=== PATIENT | female | born 1980 | race Caucasian/White ===

== ENCOUNTER → 2017-03-08 | Outpatient (CLI) | payer OTHER ==
[~2017-03-08] MED LIST: ACET50TA PO; IBUP80TA PO; NORC1TAB4 PO
--- NOTE | 2017-03-08 14:26 | REP ---
BASELINE BILATERAL SCREENING DIGITAL MAMMOGRAM: There are no palpable abnormalities or other breast complaints. The patient states she had a clinical breast exam in February 2017. There are no comparisons. The study is a baseline examination. There is moderately dense heterogeneous breast parenchyma that could obscure a lesion. There is no dominant mass, micro calcific cluster or architectural distortion that would indicate malignancy. IMPRESSION: There is no evidence of malignancy. BIRADS category 1 negative mammogram. The patient should have a repeat mammogram in 1 year. This mammogram was interpreted with the aid of an FDA-approved computer-aided detection system. A. Negative x-ray reports should not delay biopsy if a dominant or clinically suspicious mass is present. B. Nor all breast cancers are identified by x-ray. C. Adenosis and dense breasts may obscure an underlying neoplasm. Patient letter M1 dense breasts. Signed by Derek Hearn MD 03/09/2017 01:58 P
== END ==
LOC: M RAD 12:52
PROVIDERS: ATTEND Advanced Practice Midwife
DX: Z12.31 Encounter for screening mammogram for malignant neoplasm of breast (principal)

== ENCOUNTER → 2017-05-24 | Outpatient (REF) | payer OTHER ==
[2017-05-24 13:52] LABS: CHOLESTEROL LEVEL 189 MG/DL (<200); CHOLESTEROL RISK RATIO 3.315 (<5); GLUCOSE,RANDOM 86 MG/DL (LESS THAN 200); HDL CHOLESTEROL 57 MG/DL (>40); LDL CHOLESTEROL 99.2 MG/DL (<100); NON-HDL-C 132 MG/DL; TRIGLYCERIDES LEVEL 164 MG/DL (<150)
== END ==
LOC: M LABDRAW1 10:24
DX: Z13.1 Encounter for screening for diabetes mellitus (principal); Z13.220 Encounter for screening for lipoid disorders
CPT/HCPCS: 36415

== ENCOUNTER → 2017-06-26 | Outpatient (REF) | payer OTHER | LOC: M LAB REF 09:44 | DX: A08.4 Viral intestinal infection, unspecified (principal) | CPT/HCPCS: 87086 ==

== ENCOUNTER → 2017-06-26 | Outpatient (CLI) | payer OTHER ==
[2017-06-26 18:35] LABS: ALBUMIN 3.6 GM/DL (3.2-5.2); ALBUMIN/GLOBULIN RATIO 0.92 (1.00-1.93); ALKALINE PHOSPHATASE 92 U/L (45-117); ALT/SGPT 72 U/L (12-78); ANION GAP 9 MEQ/L (8-16); AST/SGOT 61 U/L (7-37); BILIRUBIN,TOTAL 0.6 MG/DL (0.2-1.0); BLOOD UREA NITROGEN 6 MG/DL (7-18); CALCIUM LEVEL 8.9 MG/DL (8.5-10.1); CARBON DIOXIDE LEVEL 28 MEQ/L (21-32); CHLORIDE LEVEL 103 MEQ/L (98-107); CREATININE FOR GFR 0.69 MG/DL (0.55-1.30); GLOMERULAR FILTRATION RATE > 60.0 (>60); GLUCOSE, FASTING 88 MG/DL (70-100); POTASSIUM SERUM 3.6 MEQ/L (3.5-5.1); SODIUM LEVEL 140 MEQ/L (136-145); TOTAL PROTEIN 7.5 GM/DL (6.4-8.2)
[2017-06-26 18:55] LABS: BASO % 0.2 % (0.0-1.0); EOS % 0.2 % (0.0-3.0); IMMATURE GRANULOCYTE % 0.2 % (0-3.0); LYMPH # 1.7 10^3/uL (1.5-4.5); LYMPH % 27.4 % (24.0-44.0); MEAN CORPUSCULAR HEMOGLOBIN 30.2 pg (27.0-33.0); MEAN CORPUSCULAR HGB CONC 34.1 g/dl (32.0-36.5); MEAN CORPUSCULAR VOLUME 88.4 fl (80.0-96.0); MONO # 0.4 10^3/uL (0.0-0.8); MONO % 7.1 % (0.0-5.0); NEUTROPHILS % 64.9 % (36.0-66.0); PLATELET COUNT, AUTOMATED 290 10^3/uL (150-450); RED BLOOD COUNT 4.64 10^6/uL (4.00-5.40); RED CELL DISTRIBUTION WIDTH 12.1 % (11.5-14.5); WHITE BLOOD COUNT 6.2 10^3/uL (4.0-10.0)
== END ==
LOC: M LAB 16:57
DX: R19.7 Diarrhea, unspecified (principal); J06.9 Acute upper respiratory infection, unspecified
CPT/HCPCS: 80053

== ENCOUNTER → 2017-06-26 | Outpatient (REF) | payer OTHER | LOC: M SFHCPLAZ 17:42 | DX: J06.9 Acute upper respiratory infection, unspecified (principal) | CPT/HCPCS: 87633 ==

== ENCOUNTER → 2017-06-28 | Outpatient (REF) | payer OTHER | LOC: M SFHCPLAZ 10:17 | DX: R19.7 Diarrhea, unspecified (principal) | CPT/HCPCS: 87507 ==

== ENCOUNTER → 2017-07-05 | Outpatient (REF) | payer OTHER ==
[2017-07-05 16:45] LABS: FREE T4 1.14 NG/DL (0.76-1.46)
== END ==
LOC: M SFHCPLAZ 10:54
DX: R00.0 Tachycardia, unspecified (principal)
CPT/HCPCS: 84443

== ENCOUNTER → 2018-02-14 | Outpatient (REF) | payer OTHER ==
[2018-02-14 13:01] LABS: ALBUMIN 3.5 GM/DL (3.2-5.2); ALBUMIN/GLOBULIN RATIO 1.09 (1.00-1.93); ALKALINE PHOSPHATASE 66 U/L (45-117); ALT/SGPT 21 U/L (12-78); ANION GAP 6 MEQ/L (8-16); AST/SGOT 19 U/L (7-37); BILIRUBIN,TOTAL 0.4 MG/DL (0.2-1.0); BLOOD UREA NITROGEN 10 MG/DL (7-18); CALCIUM LEVEL 8.9 MG/DL (8.5-10.1); CARBON DIOXIDE LEVEL 29 MEQ/L (21-32); CHLORIDE LEVEL 106 MEQ/L (98-107); CREATININE FOR GFR 0.76 MG/DL (0.55-1.30); GLOMERULAR FILTRATION RATE > 60.0 (>60); GLUCOSE, FASTING 87 MG/DL (70-100); POTASSIUM SERUM 4.3 MEQ/L (3.5-5.1); SODIUM LEVEL 141 MEQ/L (136-145); TOTAL PROTEIN 6.7 GM/DL (6.4-8.2)
== END ==
LOC: M SFHCPLAZ 09:20
DX: R74.0 Nonspecific elevation of levels of transaminase and lactic acid dehydrogenase [LDH] (principal)

== ENCOUNTER → 2018-03-14 | Outpatient (CLI) | payer OTHER | LOC: M RAD 09:26 | DX: Z12.31 Encounter for screening mammogram for malignant neoplasm of breast (principal) | CPT/HCPCS: 77067 ==

== ENCOUNTER → 2018-09-25 | Outpatient (CLI) | payer OTHER ==
[~2018-09-25] MED LIST changes: -ACET50TA PO; +MAPA500T17 PO; -NORC1TAB4 PO; +NORC1TAB7 PO
--- NOTE | 2018-09-26 11:50 | REP ---
Clinical: Right ankle pain. Technique: AP, lateral, bilateral oblique views of the right ankle. Comparison: None. Findings: Soft tissue swelling is appreciated. Well corticated bony fragment inferior to the fibular tip may represent old fracture and much less likely acute fracture. Ankle mortise appears intact and normal. No obvious acute fracture or dislocation identified. No subcutaneous emphysema or radiodense foreign body. Impression: Essentially age-appropriate examination. Suspect old fracture fragment at the fibular tip less likely representing acute injury. Electronically Signed by Ike Her MD 09/26/2018 11:30 A
== END ==
LOC: M ADAMS 16:22
PROVIDERS: ATTEND Physician Assistant Medical
DX: M25.571 Pain in right ankle and joints of right foot (principal)

== ENCOUNTER → 2019-03-11 | Outpatient (REF) | payer OTHER ==
[2019-03-14 14:13] LABS: HPV HYBRID CAPTURE II Negative (Negative)
== END ==
LOC: M LAB REF 19:57
PROVIDERS: ATTEND Advanced Practice Midwife
DX: Z12.4 Encounter for screening for malignant neoplasm of cervix (principal)

== ENCOUNTER → 2019-04-02 | Outpatient (CLI) | payer OTHER ==
--- NOTE | 2019-04-02 17:24 | REPMRS ---
Patient History The patient states she had a clinical breast exam in 2018.Family history of unknown cancer in father. Taking hormonal contraceptives for 4 years. denied,patient shielded. 3D TOMOSYNTHESIS WAS PERFORMED. [facility] for [facility] cancer [facility] 10.4%. Digital Mammo Screening Bilat: April 02, 2019 - Exam #: [id number] Bilateral CC and MLO view(s) were taken. Technologist: Marilou Grace, Technologist Prior study comparison: March 14, 2018, bilateral digital mammo screening bilat performed at [facility]. March 08, 2017, bilateral digital mammo screening bilat performed at [facility]. FINDINGS: There are scattered fibroglandular densities. There has been no change in the appearance of the mammogram from the prior studies. There is a mild amount of residual fibroglandular tissue which is fairly symmetric. There is no interval development of dominant mass, architectural distortion, or clustered microcalcification suggestive of malignancy. Assessment: BI-RADS/ACR category 1 mammogram. Negative Mammogram. Recommendation Routine screening mammogram in 1 year (for women over age 40). This mammogram was interpreted with the aid of an FDA-approved computer-aided dectection system. Electronically Signed By: Derek Pratt MD 04/02/19 [id number]
== END ==
LOC: M RAD 16:49
PROVIDERS: ATTEND Advanced Practice Midwife
DX: Z12.31 Encounter for screening mammogram for malignant neoplasm of breast (principal)

== ENCOUNTER → 2019-06-14 | Outpatient (REF) | payer OTHER | LOC: M SFHCPLAZ 10:33 | PROVIDERS: ATTEND Family Medicine | DX: Z53.9 Procedure and treatment not carried out, unspecified reason (principal) ==

== ENCOUNTER → 2019-09-18 | Outpatient (REF) | payer OTHER ==
[2019-09-18 13:57] LABS: HEMATOCRIT 40.9 % (36.0-47.0); HEMOGLOBIN 13.6 g/dl (12.0-15.5); MEAN CORPUSCULAR HEMOGLOBIN 30.9 pg (27.0-33.0); MEAN CORPUSCULAR HGB CONC 33.3 g/dl (32.0-36.5); PLATELET COUNT, AUTOMATED 303 10^3/uL (150-450); WHITE BLOOD COUNT 8.7 10^3/uL (4.0-10.0)
[2019-09-18 14:01] LABS: ALBUMIN 3.6 GM/DL (3.2-5.2); ALT/SGPT 34 U/L (12-78); BILIRUBIN,TOTAL 0.5 MG/DL (0.2-1.0); BLOOD UREA NITROGEN 11 MG/DL (7-18); CALCIUM LEVEL 9.1 MG/DL (8.5-10.1); CARBON DIOXIDE LEVEL 28 MEQ/L (21-32); CHLORIDE LEVEL 104 MEQ/L (98-107); CHOLESTEROL LEVEL 204 MG/DL (<200); CHOLESTEROL RISK RATIO 3.238 (<5); CREATININE FOR GFR 0.78 MG/DL (0.55-1.30); GLOMERULAR FILTRATION RATE > 60.0 (>58); GLUCOSE, FASTING 110 MG/DL (70-100); HDL CHOLESTEROL 63 MG/DL (>40); LDL CHOLESTEROL 114 MG/DL (<100); NON-HDL-C 141 MG/DL; POTASSIUM SERUM 4.3 MEQ/L (3.5-5.1); SODIUM LEVEL 139 MEQ/L (136-145); TOTAL PROTEIN 6.6 GM/DL (6.4-8.2); TRIGLYCERIDES LEVEL 133 MG/DL (<150)
[2019-09-18 14:28] LABS: HEMOGLOBIN A1c 6.1 %
== END ==
LOC: M SFHCPLAZ 09:51 → M SFHCADAM 09:52
PROVIDERS: ATTEND Family Medicine
DX: I10 Essential (primary) hypertension (principal); Z13.1 Encounter for screening for diabetes mellitus; Z13.220 Encounter for screening for lipoid disorders

== ENCOUNTER → 2020-03-13 | Outpatient (REF) | payer OTHER | LOC: M SFHCADAM 08:46 | PROVIDERS: ATTEND Student in an Organized Health Care Education/Training Program | DX: R73.03 Prediabetes (principal) ==

== ENCOUNTER → 2020-05-15 | Outpatient (REF) | payer OTHER | LOC: M SFHCPLAZ 13:05 | PROVIDERS: ATTEND Student in an Organized Health Care Education/Training Program | DX: D22.4 Melanocytic nevi of scalp and neck (principal) ==

== ENCOUNTER → 2020-06-22 | Outpatient (REF) | payer OTHER | LOC: M LAB REF 09:31 | PROVIDERS: ATTEND Dermatology | DX: C44.41 Basal cell carcinoma of skin of scalp and neck (principal) ==

== ENCOUNTER → 2020-09-07 | Outpatient (CLI) | payer OTHER | LOC: M WHC 09:58 | PROVIDERS: ATTEND Advanced Practice Midwife | DX: Z53.9 Procedure and treatment not carried out, unspecified reason (principal); Z12.31 Encounter for screening mammogram for malignant neoplasm of breast ==

== ENCOUNTER → 2020-09-07 | Outpatient (REF) | payer OTHER | LOC: M SFHCWAGY 13:12 | PROVIDERS: ATTEND Advanced Practice Midwife | DX: Z12.4 Encounter for screening for malignant neoplasm of cervix (principal) ==

== ENCOUNTER → 2020-09-07 | Outpatient (CLI) | payer OTHER ==
--- NOTE | 2020-09-07 12:47 | REPMRS ---
Patient History The patient states she had a clinical breast exam in 09-07-2020. Patient has history Basal cell cancer at age 40. Family history of Follicular Degenerate Carcinoma at age 55 in father. Taking hormonal contraceptives for 8 years. Patient states no breast complaints today. Patient has signed MRS History Sheet. Digital Woman Screen Mammo: September 07, 2020 - Exam #: [id number] Bilateral CC and MLO view(s) were taken. Technologist: Kaila Bush, Erector Operator Prior study comparison: April 02, 2019, bilateral digital mammo screening bilat, performed at [facility]. March 14, 2018, bilateral digital mammo screening bilat, performed at [facility]. FINDINGS: There are scattered fibroglandular densities. Screening. Digital screening (2D) mammography was performed bilaterally in the CC and MLO projections. Additionally, breast tomosynthesis (3D mammography) was performed bilaterally in the CC and MLO projections. Todays exam was compared to the prior exams(s). By history, the patient has no complaints of a palpable breast abnormality or other significant breast complaints. The breasts are unchanged in size and shape. There are no lonny-soft tissue densities or spiculated masses. There is no internal architectural distortion. There are no suspicious lonny-calcific clusters. Skin thickening or nipple retraction is not present. IMPRESSION: BI-RADS Category 2- Benign Findings(s). There is no evidence of malignant alteration of the breasts. Followup examination recommended in one year. This mammogram was read with the assistance of iNEWiT,an FDA approved computer aided detection system for mammography. The Volpara volumetric breast density category is B, there are scattered areas of fibroglandular density. Negative x-ray reports should not delay surgical consultation if a dominant or clinically suspicious mass is present. The lifetime Tyrer-Cuzick score is 8.3 % Not all breast cancers can be identified by mammography. Therefore, we recommend that you continue to perform regular breast self-examination and physical examination and then promptly contact your physician of any concerns or changes. Adenosis and dense breasts may obscure an underlying neoplasm. Assessment: BI-RADS/ACR category 2 mammogram. Benign Findings. Recommendation Routine screening mammogram of both breasts in 1 year. Electronically Signed By: Radames Rao DO 09/07/20 [id number]
== END ==
LOC: M WHC 09:16
PROVIDERS: ATTEND Advanced Practice Midwife
DX: Z12.31 Encounter for screening mammogram for malignant neoplasm of breast (principal); Z79.3 Long term (current) use of hormonal contraceptives

== ENCOUNTER → 2021-02-05 | Outpatient (REF) | payer OTHER | LOC: M LAB REF 16:19 | PROVIDERS: ATTEND Physician Assistant | DX: C44.41 Basal cell carcinoma of skin of scalp and neck (principal) ==

== ENCOUNTER → 2021-09-27 | Outpatient (REF) | payer OTHER | LOC: M SFHCDERM 14:16 | PROVIDERS: ATTEND Physician Assistant | DX: C44.310 Basal cell carcinoma of skin of unspecified parts of face (principal) ==

== ENCOUNTER → 2022-01-18 | Outpatient (REF) | payer OTHER | LOC: M SFHCWAGY 17:45 | PROVIDERS: ATTEND Advanced Practice Midwife | DX: Z12.4 Encounter for screening for malignant neoplasm of cervix (principal) ==

== ENCOUNTER → 2022-01-18 | Outpatient (CLI) | payer OTHER | LOC: M WHC 14:03 | PROVIDERS: ATTEND Advanced Practice Midwife | DX: Z12.31 Encounter for screening mammogram for malignant neoplasm of breast (principal) ==

== ENCOUNTER → 2022-01-18 | Outpatient (CLI) | payer OTHER | LOC: M WHC 13:18 | PROVIDERS: ATTEND Advanced Practice Midwife | DX: Z12.31 Encounter for screening mammogram for malignant neoplasm of breast (principal) ==

== ENCOUNTER → 2022-03-04 | Outpatient (REF) | payer OTHER | LOC: M SFHCDERM 17:12 | PROVIDERS: ATTEND Dermatology | DX: Z48.02 Encounter for removal of sutures (principal) ==

== ENCOUNTER 2022-07-04 15:00 | Emergency (ER) | payer OTHER ==
[~2022-07-04] VITALS: Ht 154.9 cm; Wt 104.7 kg
[2022-07-04] MEDS ORDERED: NORE1TAB73 (15:13)
[2022-07-04] MEDS ORDERED: OMEP40CA5 (15:13)
[2022-07-04 16:03] LABS: BASO # 0.1 10^3/uL (0.0-0.2); BASO % 0.4 % (0.0-1.0); EOS % 0.3 % (0.0-3.0); HEMATOCRIT 41.3 % (36.0-47.0); HEMOGLOBIN 13.9 g/dl (12.0-15.5); LYMPH # 2.4 10^3/uL (1.5-5.0); LYMPH % 20.1 % (24.0-44.0); MEAN CORPUSCULAR HEMOGLOBIN 30.3 pg (27.0-33.0); MEAN CORPUSCULAR HGB CONC 33.7 g/dl (32.0-36.5); MONO # 0.5 10^3/uL (0.0-0.8); MONO % 4.2 % (2.0-8.0); NEUTROPHILS % 74.6 % (36.0-66.0); PLATELET COUNT, AUTOMATED 306 10^3/uL (150-450); RED BLOOD COUNT 4.59 10^6/uL (4.00-5.40)
[2022-07-04 16:15] LABS: INR 0.96; PARTIAL THROMBOPLASTIN TIME 23.4 SECONDS (24.8-34.2)
[2022-07-04 16:27] LABS: LIPASE 41 U/L (12-53)
[2022-07-04 16:29] LABS: CPK CREATINE PHOSPHOKINASE 124 U/L (34-145)
[2022-07-04 17:11] LABS: ALBUMIN 3.7 G/DL (3.2-5.2); ALKALINE PHOSPHATASE 64 U/L (46-116); ALT/SGPT 17 U/L (7.0-40); AST/SGOT 14 U/L (<34); BILIRUBIN,DIRECT 0.1 MG/DL (<0.4); BILIRUBIN,TOTAL 0.5 MG/DL (0.3-1.2); BLOOD UREA NITROGEN 12 MG/DL (9-23); CARBON DIOXIDE LEVEL 25 MMOL/L (20-31); CHLORIDE LEVEL 103 MMOL/L (98-107); CK-MB VALUE MASS < 1.0 NG/ML (<3.6); CREATININE FOR GFR 0.77 MG/DL (0.55-1.30); GLOMERULAR FILTRATION RATE > 60.0 (>58); GLUCOSE, FASTING 145 MG/DL (60-100); POTASSIUM SERUM 3.9 MMOL/L (3.5-5.1); SODIUM LEVEL 136 MMOL/L (136-145); THYROID STIMULATING HORMONE 3.332 uIU/ML (0.55-4.78); TOTAL PROTEIN 7.2 G/DL (5.7-8.2)
[2022-07-04 17:12] LABS: HCG, SERUM QUALITATIVE NEGATIVE (NEGATIVE)
[2022-07-04] MEDS ORDERED: DEBL1TAB PO (18:35)
[2022-07-04] MEDS ORDERED: CHLO125TA PO (18:35)
[2022-07-04] MEDS ORDERED: CHLORTHALIDONE 12.5MG PER 1/2 TABLET PO ONE (18:35)
[2022-07-04] MEDS ORDERED: ACETAMINOPHEN 325 MG TAB PO ONE (18:40)
[2022-07-04 18:44] VITALS: BP 171/94
== END 2022-07-04 18:54 | disposition home or self-care (01) ==
LOC: M ED 15:00
DX: I10 Essential (primary) hypertension (principal); Z79.83 Long term (current) use of bisphosphonates; Z79.3 Long term (current) use of hormonal contraceptives

== ENCOUNTER → 2022-07-15 | Outpatient (REF) | payer OTHER ==
[~2022-07-15] MED LIST changes: +CHLO125TA PO; +DEBL1TAB PO; +NORE1TAB73; +OMEP40CA5
== END ==
LOC: M SFHCPLAZ 10:02
PROVIDERS: ATTEND Family Medicine
DX: Z53.9 Procedure and treatment not carried out, unspecified reason (principal)

== ENCOUNTER → 2022-07-15 | Outpatient (CLI) | payer OTHER ==
[2022-07-15 13:35] LABS: BASO # 0.1 10^3/uL (0.0-0.2); BASO % 0.6 % (0.0-1.0); EOS # 0.1 10^3/uL (0.0-0.5); EOS % 1.4 % (0.0-3.0); HEMATOCRIT 41.8 % (36.0-47.0); HEMOGLOBIN 14.5 g/dl (12.0-15.5); LYMPH # 2.4 10^3/uL (1.5-5.0); LYMPH % 28.1 % (24.0-44.0); MEAN CORPUSCULAR HEMOGLOBIN 31.1 pg (27.0-33.0); MEAN CORPUSCULAR HGB CONC 34.7 g/dl (32.0-36.5); MEAN CORPUSCULAR VOLUME 89.7 fl (80.0-96.0); MONO # 0.5 10^3/uL (0.0-0.8); MONO % 5.5 % (2.0-8.0); NEUTROPHILS # 5.4 10^3/uL (1.5-8.5); NEUTROPHILS % 64.2 % (36.0-66.0); PLATELET COUNT, AUTOMATED 341 10^3/uL (150-450); RED BLOOD COUNT 4.66 10^6/uL (4.00-5.40); WHITE BLOOD COUNT 8.4 10^3/uL (4.0-10.0)
[2022-07-15 13:57] LABS: HEMOGLOBIN A1c 6.2 % (4.0-6.0)
[2022-07-15 14:10] LABS: BLOOD UREA NITROGEN 10 MG/DL (9-23); CALCIUM LEVEL 9.4 MG/DL (8.5-10.1); CARBON DIOXIDE LEVEL 32 MMOL/L (20-31); CHLORIDE LEVEL 96 MMOL/L (98-107); CHOLESTEROL LEVEL 200 MG/DL (<200); CHOLESTEROL RISK RATIO 3.35 (<5); CREATININE FOR GFR 0.67 MG/DL (0.55-1.30); GLOMERULAR FILTRATION RATE > 60.0 (>58); GLUCOSE, FASTING 116 MG/DL (60-100); HDL CHOLESTEROL 59.6 MG/DL (>40); NON-HDL-C 140.4 MG/DL; POTASSIUM SERUM 3.2 MMOL/L (3.5-5.1); SODIUM LEVEL 137 MMOL/L (136-145); THYROID STIMULATING HORMONE 1.303 uIU/ML (0.55-4.78); TRIGLYCERIDES LEVEL 127 MG/DL (<150)
[2022-07-20 00:11] LABS: CREATININE,RANDOM URINE 68.6 mg/dL (Not Estab.); URINE METANEPHR/CREAT RATIO 0.3 (0.0-1.0)
== END ==
LOC: M PLALAB 10:28
PROVIDERS: ATTEND Student in an Organized Health Care Education/Training Program
DX: I10 Essential (primary) hypertension (principal)

== ENCOUNTER → 2022-08-23 | Outpatient (CLI) | payer OTHER | LOC: M RAD 07:27 | PROVIDERS: ATTEND Student in an Organized Health Care Education/Training Program | DX: I10 Essential (primary) hypertension (principal) ==

== ENCOUNTER → 2022-08-25 | Outpatient (REF) | payer OTHER | LOC: M SFHCPLAZ 15:20 | PROVIDERS: ATTEND Internal Medicine Hematology | DX: Z53.9 Procedure and treatment not carried out, unspecified reason (principal) ==

== ENCOUNTER → 2022-09-01 | Outpatient (REF) | payer OTHER ==
[2022-09-01 17:23] LABS: BLOOD UREA NITROGEN 9 MG/DL (9-23); CALCIUM LEVEL 8.3 MG/DL (8.5-10.1); CARBON DIOXIDE LEVEL 29 MMOL/L (20-31); CHLORIDE LEVEL 106 MMOL/L (98-107); CREATININE FOR GFR 0.73 MG/DL (0.55-1.30); GLOMERULAR FILTRATION RATE > 60.0 (>58); GLUCOSE, FASTING 135 MG/DL (60-100); POTASSIUM SERUM 3.9 MMOL/L (3.5-5.1); SODIUM LEVEL 141 MMOL/L (136-145)
== END ==
LOC: M SFHCPLAZ 13:28
PROVIDERS: ATTEND Internal Medicine Hematology
DX: E87.6 Hypokalemia (principal); I10 Essential (primary) hypertension

== ENCOUNTER 2022-09-04 18:36 | Emergency (ER) | payer OTHER ==
[~2022-09-04] VITALS: Ht 154.9 cm; Wt 107.5 kg
[2022-09-04 20:08] VITALS: BP 181/73
== END 2022-09-04 20:09 | disposition home or self-care (01) ==
LOC: M ED 18:36
DX: S63.602A Unspecified sprain of left thumb, initial encounter (principal); X50.0XXA Overexertion from strenuous movement or load, initial encounter; I10 Essential (primary) hypertension; K21.9 Gastro-esophageal reflux disease without esophagitis; Z79.83 Long term (current) use of bisphosphonates; Z79.899 Other long term (current) drug therapy

== ENCOUNTER → 2022-09-09 | Outpatient (CLI) | payer OTHER | LOC: M ADAMS 11:59 | PROVIDERS: ATTEND Physician Assistant | DX: S63.642A Sprain of metacarpophalangeal joint of left thumb, initial encounter (principal) ==

== ENCOUNTER → 2023-01-20 | Outpatient (CLI) | payer OTHER | LOC: M WHC 13:42 | PROVIDERS: ATTEND Advanced Practice Midwife | DX: Z12.31 Encounter for screening mammogram for malignant neoplasm of breast (principal) ==

== ENCOUNTER → 2023-01-20 | Outpatient (REF) | payer OTHER | LOC: M SFHCWAGY 17:32 | PROVIDERS: ATTEND Advanced Practice Midwife | DX: Z12.4 Encounter for screening for malignant neoplasm of cervix (principal); R87.615 Unsatisfactory cytologic smear of cervix; R87.618 Other abnormal cytological findings on specimens from cervix uteri ==

== ENCOUNTER → 2023-03-13 | Outpatient (REF) | payer OTHER ==
[2023-03-13 17:43] LABS: BASO % 0.3 % (0.0-1.0); EOS # 0.2 10^3/uL (0.0-0.5); EOS % 1.6 % (0.0-3.0); HEMATOCRIT 40.4 % (36.0-47.0); HEMOGLOBIN 13.4 g/dl (12.0-15.5); LYMPH # 2.9 10^3/uL (1.5-5.0); LYMPH % 24.5 % (24.0-44.0); MEAN CORPUSCULAR HEMOGLOBIN 30.3 pg (27.0-33.0); MEAN CORPUSCULAR HGB CONC 33.2 g/dl (32.0-36.5); MEAN CORPUSCULAR VOLUME 91.4 fl (80.0-96.0); MONO # 0.5 10^3/uL (0.0-0.8); MONO % 4.5 % (2.0-8.0); NEUTROPHILS % 68.7 % (36.0-66.0); PLATELET COUNT, AUTOMATED 346 10^3/uL (150-450); RED BLOOD COUNT 4.42 10^6/uL (4.00-5.40); WHITE BLOOD COUNT 11.7 10^3/uL (4.0-10.0)
[2023-03-13 17:53] LABS: HEMOGLOBIN A1c 6.3 % (4.0-6.0)
[2023-03-13 18:11] LABS: ALBUMIN 3.7 G/DL (3.2-5.2); ALKALINE PHOSPHATASE 68 U/L (46-116); ALT/SGPT 15 U/L (7.0-40); AST/SGOT 13 U/L (<34); BILIRUBIN,TOTAL 0.4 MG/DL (0.3-1.2); BLOOD UREA NITROGEN 11 MG/DL (9-23); CALCIUM LEVEL 8.9 MG/DL (8.5-10.1); CARBON DIOXIDE LEVEL 27 MMOL/L (20-31); CHLORIDE LEVEL 101 MMOL/L (98-107); CREATININE FOR GFR 0.74 MG/DL (0.55-1.30); GLOMERULAR FILTRATION RATE > 60.0 (>58); GLUCOSE, FASTING 166 MG/DL (60-100); POTASSIUM SERUM 4.3 MMOL/L (3.5-5.1); SODIUM LEVEL 135 MMOL/L (136-145); TOTAL PROTEIN 6.9 G/DL (5.7-8.2)
[2023-03-13 18:13] LABS: FREE T4 1.04 NG/DL (0.89-1.76); THYROID STIMULATING HORMONE 1.803 uIU/ML (0.55-4.78)
== END ==
LOC: M SFHCADAM 15:24
PROVIDERS: ATTEND Physician Assistant
DX: I10 Essential (primary) hypertension (principal); K21.9 Gastro-esophageal reflux disease without esophagitis; Z68.42 Body mass index [BMI] 45.0-49.9, adult; R73.03 Prediabetes

== ENCOUNTER → 2024-02-14 | Outpatient (REF) | payer OTHER ==
[2024-02-14 13:13] LABS: BASO % 0.6 % (0.0-1.0); EOS # 0.2 10^3/uL (0.0-0.5); EOS % 3.2 % (0.0-3.0); HEMOGLOBIN 12.4 g/dl (12.0-15.5); LYMPH # 2.1 10^3/uL (1.5-5.0); LYMPH % 32.7 % (24.0-44.0); MEAN CORPUSCULAR HGB CONC 32.6 g/dl (32.0-36.5); MEAN CORPUSCULAR VOLUME 91.8 fl (80.0-96.0); MONO # 0.4 10^3/uL (0.0-0.8); MONO % 6.4 % (2.0-8.0); NEUTROPHILS # 3.6 10^3/uL (1.5-8.5); NEUTROPHILS % 56.8 % (36.0-66.0); PLATELET COUNT, AUTOMATED 289 10^3/uL (150-450); RED BLOOD COUNT 4.14 10^6/uL (4.00-5.40); WHITE BLOOD COUNT 6.3 10^3/uL (4.0-10.0)
[2024-02-14 13:27] LABS: ALBUMIN 3.6 G/DL (3.2-5.2); ALKALINE PHOSPHATASE 72 U/L (46-116); ALT/SGPT 19 U/L (7.0-40); AST/SGOT 15 U/L (<34); BILIRUBIN,TOTAL 0.6 MG/DL (0.3-1.2); BLOOD UREA NITROGEN 10 MG/DL (9-23); CALCIUM LEVEL 9.1 MG/DL (8.5-10.1); CARBON DIOXIDE LEVEL 29 MMOL/L (20-31); CHLORIDE LEVEL 105 MMOL/L (98-107); CHOLESTEROL LEVEL 185 MG/DL (<200); CHOLESTEROL RISK RATIO 3.72 (<5); CREATININE FOR GFR 0.76 MG/DL (0.55-1.30); GLOMERULAR FILTRATION RATE > 60.0 (>58); GLUCOSE, FASTING 132 MG/DL (60-100); HDL CHOLESTEROL 49.7 MG/DL (>40); LDL CHOLESTEROL 102.1 MG/DL (<100); NON-HDL-C 135.3 MG/DL; POTASSIUM SERUM 4.1 MMOL/L (3.5-5.1); SODIUM LEVEL 138 MMOL/L (136-145); TOTAL PROTEIN 6.6 G/DL (5.7-8.2); TRIGLYCERIDES LEVEL 166 MG/DL (<150)
[2024-02-14 13:31] LABS: THYROID STIMULATING HORMONE 1.533 uIU/ML (0.55-4.78)
[2024-02-14 13:44] LABS: HEMOGLOBIN A1c 6.8 % (4.0-6.0)
== END ==
LOC: M SFHCADAM 09:05
PROVIDERS: ATTEND Physician Assistant
DX: Z00.00 Encounter for general adult medical examination without abnormal findings (principal); I10 Essential (primary) hypertension; R73.03 Prediabetes; R10.13 Epigastric pain

== ENCOUNTER → 2024-06-18 | Outpatient (CLI) | payer OTHER | LOC: M WHC 09:14 | PROVIDERS: ATTEND Advanced Practice Midwife | DX: Z12.31 Encounter for screening mammogram for malignant neoplasm of breast (principal); R92.313 Mammographic fatty tissue density, bilateral breasts ==

== ENCOUNTER → 2024-06-18 | Outpatient (REF) | payer OTHER ==
[2024-06-20 13:22] LABS: HPV APTIMA Not Detected (Not Detected)
== END ==
LOC: M SFHCWAGY 13:19
PROVIDERS: ATTEND Advanced Practice Midwife
DX: Z12.4 Encounter for screening for malignant neoplasm of cervix (principal)

== ENCOUNTER → 2024-08-28 | Outpatient (REF) | payer OTHER ==
[2024-08-28 14:38] LABS: BLOOD UREA NITROGEN 10 MG/DL (9-23); CALCIUM LEVEL 9.1 MG/DL (8.5-10.1); CARBON DIOXIDE LEVEL 28 MMOL/L (20-31); CHLORIDE LEVEL 101 MMOL/L (98-107); CREATININE FOR GFR 0.69 MG/DL (0.55-1.30); GLOMERULAR FILTRATION RATE > 90.0 (>58); GLUCOSE, FASTING 139 MG/DL (60-100); POTASSIUM SERUM 4.3 MMOL/L (3.5-5.1); SODIUM LEVEL 139 MMOL/L (136-145)
[2024-08-28 14:39] LABS: THYROID STIMULATING HORMONE 3.674 uIU/ML (0.55-4.78); TOTAL 25(OH) VITAMIN D 10.8 NG/ML (20.0-100.0)
[2024-08-28 14:41] LABS: FREE T4 1.02 NG/DL (0.89-1.76)
[2024-08-28 15:10] LABS: HEMOGLOBIN A1c 6.5 % (4.0-6.0)
== END ==
LOC: M SFHCADAM 08:44
PROVIDERS: ATTEND Physician Assistant
DX: E11.9 Type 2 diabetes mellitus without complications (principal)

== ENCOUNTER → 2024-12-26 | Outpatient (REF) | payer OTHER ==
[2024-12-26 14:53] LABS: PLATELET COUNT, AUTOMATED 310 10^3/uL (150-450)
[2024-12-26 15:00] LABS: ALT/SGPT 27 U/L (7.0-40); AST/SGOT 24 U/L (<34); CALCIUM LEVEL 9.0 MG/DL (8.5-10.1); CARBON DIOXIDE LEVEL 28 MMOL/L (20-31); CHLORIDE LEVEL 104 MMOL/L (98-107); CHOLESTEROL LEVEL 167 MG/DL (<200); CHOLESTEROL RISK RATIO 3.59 (<5); CREATININE FOR GFR 0.77 MG/DL (0.55-1.30); GLOMERULAR FILTRATION RATE > 90.0 (>58); LDL CHOLESTEROL 93.8 MG/DL (<100); NON-HDL-C 120.6 MG/DL; POTASSIUM SERUM 4.5 MMOL/L (3.5-5.1); SODIUM LEVEL 143 MMOL/L (136-145); TRIGLYCERIDES LEVEL 134 MG/DL (<150)
[2024-12-26 15:02] LABS: FREE T4 1.13 NG/DL (0.89-1.76)
[2024-12-26 15:04] LABS: TOTAL 25(OH) VITAMIN D 34.2 NG/ML (20.0-100.0)
[2024-12-26 15:46] LABS: ESTIMATED AVERAGE GLUCOSE 137.0 MG/DL (60-110)
== END ==
LOC: M SFHCADAM 09:15
PROVIDERS: ATTEND Physician Assistant
DX: I10 Essential (primary) hypertension (principal); K21.9 Gastro-esophageal reflux disease without esophagitis; E78.5 Hyperlipidemia, unspecified; E11.9 Type 2 diabetes mellitus without complications; E55.9 Vitamin D deficiency, unspecified

== ENCOUNTER → 2025-04-10 | Outpatient (REF) | payer OTHER | LOC: M SFHCADAM 16:15 | PROVIDERS: ATTEND Physician Assistant Medical | DX: Z12.11 Encounter for screening for malignant neoplasm of colon (principal); Z12.12 Encounter for screening for malignant neoplasm of rectum; Z53.9 Procedure and treatment not carried out, unspecified reason ==